=== PATIENT | female | born 1995 | race Hispanic/Latino ===

== ENCOUNTER 2024-11-02 19:31 | Emergency (ER) | payer OTHER ==
[2024-11-02] MEDS ORDERED: ONDANSETRON 4 MG/2 ML VIAL ONE (19:50)
[2024-11-02] MEDS ORDERED: NA CHLORIDE 0.9% 2,000 ML ONE (19:50)
[2024-11-02 20:18] LABS: Absolute Eosinophils 0.1 K/uL (0-0.5); Absolute Lymphocytes (CBC) 7.8 K/uL (0.7-4.9); Absolute Monocytes 0.8 K/uL (0.1-1.3); Absolute Neutrophil 5.2 K/uL (1.8-8.0); Basophils % 0.4 % (0-1.3); Eosinophils % 0.9 % (0-4.4); Hematocrit 32.3 % (36.0-45.0); Hemoglobin 10.9 g/dL (12.0-15.0); Lymphocytes % 55.9 % (15.3-44.8); MCH 29.6 pg (27.0-35.0); MCHC 33.7 g/dL (32.0-36.0); MCV 87.9 fL (80-100); MPV 9.4 fL (7.6-11.3); Monocytes % 5.5 % (3.3-12.3); Neutrophils % 37.3 % (41.7-73.7); Nucleated Red Blood Cells % 0.1 % (0-0); Platelets 326 thou/uL (152-406); RBC Red Blood Cell Count 3.67 M/uL (3.86-4.86); Red Cell Distribution Width 14.3 % (12.1-15.2)
[2024-11-02 20:25] LABS: PT Prothrombin Time 10.8 SECONDS (10-13.0); PTT, Activated Partial Thromb 26.8 SECONDS (27.2-37.4); Protime INR 0.94
[2024-11-02 20:34] LABS: Albumin 2.8 g/dL (3.4-5.0); Albumin/Globulin Ratio 0.7 (1.1-1.8); Anion Gap 13.3 mEq/L (5.0-15.0); Bilirubin Total 0.4 mg/dL (0.2-1.0); Globulin 4.2 g/dL (2.3-3.5); Potassium 3.3 mEq/L (3.5-5.1)
--- NOTE | 2024-11-02 20:47 | RAD REPORT ---
EXAM: CT brain without contrast HISTORY: MENTAL STATUS CHANGE COMPARISON: None TECHNIQUE: Multiple contiguous axial images were obtained and a CT of the brain without contrast. Sag ittal and coronal reformats were performed. One or more of the following dose reduction techniques were used: Automated exposure control, adjust ment of the mA and/or kV according to patient size, and/or iterative reconstruction. FINDINGS: No evidence of hydrocephalus, intracranial hemorrhage, or extra-axial fluid collection. The brain is normal in morphology. No evidence of midline shift or areas of brain edema. The calvarium is intact. The visualized paranasal sinuses and mastoid air cells are essentially clear . IMPRESSION: No evidence of acute intracranial abnormality.
[2024-11-02] MEDS ORDERED: PIPERACIL/TAZO 3.375 GM VIAL IV ONE (20:48)
[2024-11-02] MEDS ORDERED: NA CHLORIDE 0.9% 100 ML ONE (20:48)
--- NOTE | 2024-11-02 20:52 | RAD REPORT ---
EXAMINATION: CTA CHEST PE CLINICAL INDICATION: Chest pain;Dyspnea TECHNIQUE: This examination was performed according to an angiographic protocol with 3D post-processi ng. This involves 3D reconstructions, MIPs, volume rendered images and/or shaded surface rendering. One or more of the following dose reduction techniques were used: Automated exposure control, adjustm ent of the mA and/or kV according to patient size, and/or iterative reconstruction. Unless otherwise specified, incidental findings do not require dedicated imaging follow-up. COMPARISON: No prior exam. FINDINGS: PULMONARY ARTERIES: Normal caliber. No evidence of pulmonary emboli to the subsegmental level. THORACIC AORTA: Normal caliber and configuration. LUNGS: No evidence of airspace or interstitial process. No nodules. PLEURA: No pleural effusion. No pneumothorax. MEDIASTINUM AND LYMPH NODES: No mediastinal mass or fluid collection. Normal size mediastinal, hilar, and axillary lymph nodes. OSSEOUS STRUCTURES AND CHEST WALL: Intact. UPPER ABDOMEN: Separately reported. IMPRESSION: No evidence of pulmonary emboli to the subsegmental level.
[2024-11-02] MEDS ORDERED: NA CHLORIDE 0.9% 250 ML ONE (20:59)
[2024-11-02] MEDS ORDERED: NA CHLORIDE 0.9% 1,000 ML ONE (20:59)
--- NOTE | 2024-11-02 21:00 | RAD REPORT ---
EXAMINATION: CT ABDOMEN AND PELVIS WITH CONTRAST CLINICAL INDICATION: ABD PAIN TECHNIQUE: CT abdomen and pelvis was performed, after the administration of IV contrast, as [facility]. Axial, sagittal and coronal reconstructions were obtained. One or more of the following dose reduction techniques were used: Automated exposure control, adjustment of the mA and k V according to patient size, and iterative reconstruction. Unless otherwise specified, incidental findings do not require dedicated imaging follow-up. COMPARISON: No prior exam. FINDINGS: LOWER CHEST: The visualized lung bases are clear. LIVER: Large hepatic mass is present right lobe measuring up to 9 cm with areas of internal enhanceme nt. Additional irregular mass is present in the left lobe of liver measuring 10 cm. There is mass effect caused by perihepatic hematoma which is large measuring 16 x 4 cm with elevated density. SPLEEN: Normal size. No focal lesion. There is fluid adjacent to the spleen as well measuring up to 2 cm. PANCREAS: No mass, ductal dilation, or jason-pancreatic fluid. ADRENALS: Normal; no mass. KIDNEYS: Normal size and contour. No hydronephrosis. GASTROINTESTINAL TRACT: Significant hemoperitoneum greater on the right. Moderate free fluid with inc reased density in the pelvis. APPENDIX: Normal appendix. LYMPH NODES: No lymphadenopathy. MUSCULOSKELETAL: No acute or suspicious osseous abnormality. ADDITIONAL FINDINGS: Intrauterine gestation is present. IMPRESSION: Moderate to large hemoperitoneum with hepatic subcapsular hematoma. The bleeding is favored to be fro m the large liver mass on the right (question hepatic adenoma or giant hemangioma). Intrauterine gestation identified. The findings were communicated with Dr. Cerda in the ER at 11/02/2024 8:56 PM by telephone.
--- NOTE | 2024-11-02 21:11 | ER ---
Nurse's Notes [facility] Name: Noreen Jauregui Age: 29 yrs Sex: Female : 1995 Arrival Date: 11/02/2024 Time: 19:31 Bed 3 Private MD: Diagnosis: Hemoperitoneum-SPONTANEOUS RUPTURE ADENOMA, BLEEDING;Hypotension, unspecified;19 weeks gestation of Presentation: 11/02 19:34 Chief complaint: Patient states: epigastric pain X 1 hour after eating, is 19 weeks iw , + nausea , 10/10 pain. Coronavirus screen: At this time, the client does not indicate any symptoms associated with coronavirus-19. Ebola Screen: No symptoms or risks identified at this time. Initial Sepsis Screen: Does the patient have a suspected source of infection? No. Patient's initial sepsis screen is negative. Risk Assessment: Do you want to hurt yourself or someone else? Patient reports no desire to harm self or others. Onset of symptoms was November 02, 2024. 19:34 Method Of Arrival: Wheelchair iw 19:34 Acuity: EDDIE 3 iw 19:35 Initial Sepsis Screen: Does the patient meet any 2 criteria? RR > 20 per min. HR > 90 vc1 bpm. Yes. 19:40 Acuity: EDDIE 2 iw Triage Assessment: 19:35 General: Appears distressed, uncomfortable, well groomed, Behavior is cooperative, vc1 listless. Pain: Complains of pain in chest and right upper quadrant Pain does not radiate. Pain currently is 9 out of 10 on a pain scale. Quality of pain is described as sharp, "felt like a train hit me" Pain began suddenly, 30 min ago. EENT: Oral mucosa is dry. lips pale. Neuro: Level of Consciousness is awake, listless, Oriented to person, place, time, situation, Appropriate for age. Cardiovascular: Heart tones S1 S2 present Capillary refill is sluggish Rhythm is sinus tachycardia. Respiratory: Reports shortness of breath at rest Airway is patent Respiratory effort is even, unlabored, Respiratory pattern is symmetrical, tachypnea Breath sounds are clear bilaterally. GI: No deficits noted. No signs and/or symptoms were reported involving the gastrointestinal system. : Denies vaginal bleeding. Derm: Skin is intact, Skin is dry, Skin is pale, Skin temperature is cool. Musculoskeletal: Circulation, motion, and sensation intact. Range of motion: intact in all extremities. 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 - Infectious Disease History:: Denies. - Social history:: Smoking status: Patient denies any tobacco usage or history of. Screenin:35 [facility] ED Fall Risk Assessment (Adult) History of falling in the last 3 months, vc1 including since admission No falls in past 3 months (0 pts) Confusion or Disorientation Yes (5 pts) Intoxicated or Sedated No (0 pts) Impaired Gait Yes (1 pt) Mobility Assist Device Used No (0 pt) Altered Elimination No (0 pt) Score/Fall Risk Level 3 or more points = High Risk Oriented to surroundings, Maintained a safe environment, Educated pt \\T\\ family on fall prevention, incl call for assistance when getting out of bed. Abuse screen: Denies threats or abuse. Nutritional screening: No deficits noted. Tuberculosis screening: No symptoms or risk factors identified. Assessment: 19:35 General: See triage assessment. Pain: Complains of pain in epigastric area and chest vc1 and right upper quadrant Pain does not radiate. Pain currently is 9 out of 10 on a pain scale. Pain began suddenly, 30 min ago. Vital Signs: 19:35 Temp 96.4; vc1 19:40 BP 87 / 52; Pulse 107; Resp 19; Pulse Ox 100% on R/A; iw 20:07 Weight 84.82 kg; vc1 20:53 BP 105 / 70; Pulse 135; Resp 26; Pulse Ox 100% on 2 lpm NC; vc1 21:15 BP 103 / 56; Pulse 129; Resp 26; Pulse Ox 100% ; vc1 21:55 BP 119 / 61; Pulse 113; Resp 22; Pulse Ox 100% ; vc1 21:55 See blood transfusion sheet for vitals vc1 ED Course: 19:32 Patient arrived in ED. rg4 19:35 Arm band placed on right wrist. vc1 19:35 Patient has correct armband on for positive identification. Bed in low position. Call vc1 light in reach. Provided Education on: Blood Transfusion. 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 Pulse ox on. NIBP on. 19:35 Inserted saline lock: 22 gauge in right forearm, using aseptic technique. vc1 19:35 Inserted saline lock: 20 gauge in left antecubital area, using aseptic technique. Blood vc1 collected. Flushed with 10 mL NS. 19:37 Triage completed. iw 19:39 Clara Peterson FNP-C [facility]. kb 19:39 Tashia Robertson MD is Attending Physician. kb 19:40 Inserted saline lock: 22 gauge in right antecubital area, using aseptic technique. vc1 Blood collected. Flushed with 10 mL NS. 20:38 CT Head Brain wo Cont In Process Unspecified. EDMS 20:38 CT Chest For PE Angio In Process Unspecified. EDMS 20:38 CT Abd/Pelvis - IV Contrast Only In Process Unspecified. EDMS 21:00 Oxygen administration via nasal cannula \\T\\ 2L/min. vc1 21:01 Elia Cerda MD is Attending Physician. kb 21:05 Dr. Cerda initiated transfer with [facility]. kmf 21:26 US OB Limited In Process Unspecified. EDMS 21:27 pt was accepted to [facility] ER \\T\\[id number]. Accepting Dr. Deniz Muñoz. Dr. yessica Cerda initiated life flight with [facility] N \\T\\ [id number]. Number for nurse to nurse report [phone] life flight eta 25 mins. 22:15 No provider procedures requiring assistance completed. Patient transferred, IV remains vc1 in place. 22:24 Darlyn Canales, RN is Primary Nurse. vc1 22:31 Frey cath inserted, using sterile technique, 16 Fr., by pa, balloon inflated, to af3 gravity drainage, Patient tolerated well. Administered Medications: 20:07 Drug: NS 0.9% IV (30 ml/kg) 30 ml/kg IV at bolus once; Sepsis Protocol; to be given as vc1 a bolus over 90 minutes Route: IV; Rate: bolus; Site: right antecubital; 20:30 Follow up: IV Status: Completed infusion; IV Intake: 2000ml vc1 20:08 Drug: Ondansetron IVP 4 mg IVP once; over 2 minutes Route: IVP; Site: left antecubital; vc1 20:15 Follow up: Response: No adverse reaction; Marked relief of symptoms; Nausea is decreasedvc1 21:00 Drug: Piperacillin-Tazobactam IVPB 3.375 grams IVPB once over 60 mins; (mix in NS 100 vc1 mL) Route: IVPB; Infused Over: 60 mins; Site: left antecubital; 22:00 Follow up: IV Status: Completed infusion; IV Intake: 100ml vc1 21:15 Drug: NS 0.9% IV 1000 ml IV at 150 ml/hr continuous; to be given as a bolus over 60 vc1 minutes Route: IV; Rate: 150 ml/hr; Site: left antecubital; 22:40 Follow up: IV Status: Infusion continued upon transfer vc1 Medication: 22:15 VIS not applicable for this client. vc1 Intake: 20:30 IV: 2000ml; Total: 2000ml. vc1 22:00 IV: 100ml; Total: 2100ml. vc1 Outcome: 21:11 ER care complete, transfer ordered by MD. serrato 22:15 Transferred by helicopter to [facility], Transfer form completed. X-rays sent vc1 w/ patient. 22:15 Condition: stable vc1 22:15 Instructed on the need for transfer, 22:27 Patient left the ED. vc1 Signatures: Dispatcher [employer] EDMS Clara Peterson, RADIOTELEPHONE TECHNICAL OPERATOR-C RADIOTELEPHONE TECHNICAL OPERATOR-Ckb Elia Cerda MD MD cha Williams, Irene, RN RN iw Garcia, Rubi rg4 Darlyn Canales RN RN 1 Zena Pruett Ashley af3
--- NOTE | 2024-11-02 21:11 | EDPHYS ---
Physician Documentation [facility] Name: Noreen Jauregui Age: 29 yrs Sex: Female : 1995 Arrival Date: 11/02/2024 Time: 19:31 Bed 3 Private MD: ED Physician Elia Cerda HPI: 11/02 20:41 This 29 yrs old Female presents to ER via Wheelchair with complaints of 19 kb weeks , Chest Tightness, Weakness. 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 Pt is 19 weeks . Spouse states pt complained of right sided chest pain at first. States she got pale and looked like she was going to pass out so he brought her in. . 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 - Infectious Disease History:: Denies. - Social history:: Smoking status: Patient denies any tobacco usage or history of. ROS: 20:00 Constitutional: As per HPI kb Exam: 20:00 ECG was reviewed by the Attending Physician. kb 20:41 Head/Face: Normocephalic, atraumatic. ENT: Moist Mucous membranes Respiratory: kb Respirations even and unlabored. No increased work of breathing. Talking in full sentences MS/ Extremity: Pulses equal, no cyanosis. Neurovascular intact. Full, normal range of motion. Neuro: Awake and alert, GCS 15, oriented to person, place, time, and situation. 20:41 Constitutional: The patient appears alert, awake, pale, 20:41 Cardiovascular: Rate: tachycardic, 20:41 Abdomen/GI: Inspection: abdomen appears normal, Bowel sounds: normal, Palpation: soft, in all quadrants, moderate abdominal tenderness, in the epigastric area and right upper quadrant, 20:41 Skin: Appearance: Color: pale, Vital Signs: 19:35 Temp 96.4; vc1 19:40 BP 87 / 52; Pulse 107; Resp 19; Pulse Ox 100% on R/A; iw 20:07 Weight 84.82 kg; vc1 20:53 BP 105 / 70; Pulse 135; Resp 26; Pulse Ox 100% on 2 lpm NC; vc1 21:15 BP 103 / 56; Pulse 129; Resp 26; Pulse Ox 100% ; vc1 21:55 BP 119 / 61; Pulse 113; Resp 22; Pulse Ox 100% ; vc1 21:55 See blood transfusion sheet for vitals vc1 MDM: 19:39 Medical Screening Exam initiated kb 20:31 ED course: Discussed case with Dr Cerda and Ailyn who were both at bedside for kb evaluation. Both recommend CT head, CT chest for PE and CT abd/pelvis to rule out bleeding. . 20:44 Data reviewed: vital signs, nurses notes. Historians other than the Patient: kb Spouse/Significant Other: spouse. 21:02 Differential diagnosis: intraabdominal hemorrhage, PE, arrhythmia, acute TN. kb Consideration of Admission/Observation Escalation of care including admission/observation considered. pt will be transferred . Counseling: I had a detailed discussion with the patient and/or guardian regarding the historical points, exam findings, and any diagnostic results supporting the discharge/admit diagnosis, lab results, radiology results, the need to transfer to another facility, [facility] does not immediately have the required specialist. 21:03 ED course: I initially saw this patient with Karina she came in as a hypotensive gb1 29-year-old G2, P1 at approximately 19 weeks gestation. heart tones in the 130s. Patient appeared lethargic and very pale she was hypotensive a immediate fast scan was done there was no free fluid in the abdomen however there was a large mass in the liver that was visible. She has a known history of hepatic adenomas with a concern now for hemoperitoneum. Patient is being transfused with packed red blood cells and blood pressure has responded to fluid bolus. The patient's care was transferred to Dr. Cerda pending LifeFlight to a higher level of care that is consistent with trauma/OB.. 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 Pt is pale, lethargic, hypotensive and tachycardic upon arrival. Pt is awake, alert and oriented x4. serum labs, cat scans ordered. Blood pressure improved after first 2 liters of NS given. Pt's color has improved and pt states she is feeling better. . 21:07 ED course: Sepsis reevaluation complete. kb 21:27 Management of patient was discussed with the following: Dr Cerda discussed case with [facility] providers. Pt was accepted for transfer by Dr Muñoz. . 11/02 19:44 Order name: Blood Culture Adult (2) kb 11/02 19:44 Order name: CBC with Diff; Complete Time: 20:19 kb 11/02 19:44 Order name: CMP; Complete Time: 20:34 kb 11/02 19:44 Order name: Lactate w/ 2H reflex if indic.; Complete Time: 20:41 kb 11/02 19:44 Order name: Protime (+inr); Complete Time: 20:29 kb 11/02 19:44 Order name: Ptt, Activated; Complete Time: 20:29 kb 11/02 20:19 Order name: Type And Screen 11/02 20:42 Order name: Ghost Lactate-NO COLLECT Timer EDAR 11/02 21:00 Order name: Hemoglobin; Complete Time: 21:20 kb 11/02 21:00 Order name: Hematocrit; Complete Time: 21:20 kb 11/02 21:06 Order name: Packed RBC Leukored EDAR 11/02 21:47 Order name: ABO/RH no charge; Complete Time: 21:53 EDMS 11/02 19:44 Order name: US OB Limited; Complete Time: 21:42 kb 11/02 20:31 Order name: CT Head Brain wo Cont; Complete Time: 20:48 kb 11/02 20:31 Order name: CT Chest For PE Angio; Complete Time: 20:54 kb 11/02 20:31 Order name: CT Abd/Pelvis - IV Contrast Only; Complete Time: 21:01 kb 11/02 19:44 Order name: Cardiac monitoring; Complete Time: 20:52 kb 11/02 19:44 Order name: EKG - Nurse/Tech; Complete Time: 20:52 kb 11/02 19:44 Order name: IV Saline Lock - Large Bore; Complete Time: 20:52 kb 11/02 19:44 Order name: Labs collected and sent; Complete Time: 20:52 kb 11/02 19:44 Order name: O2 Per Protocol; Complete Time: 20:52 kb 11/02 19:44 Order name: O2 Sat Monitoring; Complete Time: 20:52 kb 11/02 19:44 Order name: Vital Signs; Complete Time: 20:52 kb 11/02 20:24 Order name: Shante; Complete Time: 22:39 rojelio 11/02 20:24 Order name: Oxygen: 2 liters; Complete Time: 20:52 rojelio 11/02 20:58 Order name: NPO rojelio 11/02 20:59 Order name: Transfuse; Complete Time: 22:42 rojelio EC:00 Rate is 119 beats/min. Rhythm is regular. QRS [place] is Normal. IA interval is normal at kb 118 msec. QRS interval is normal at 74 msec. QT interval is normal at 497 msec. Administered Medications: 20:07 Drug: NS 0.9% IV (30 ml/kg) 30 ml/kg IV at bolus once; Sepsis Protocol; to be given as vc1 a bolus over 90 minutes Route: IV; Rate: bolus; Site: right antecubital; 20:30 Follow up: IV Status: Completed infusion; IV Intake: 2000ml vc1 20:08 Drug: Ondansetron IVP 4 mg IVP once; over 2 minutes Route: IVP; Site: left antecubital; vc1 20:15 Follow up: Response: No adverse reaction; Marked relief of symptoms; Nausea is decreasedvc1 21:00 Drug: Piperacillin-Tazobactam IVPB 3.375 grams IVPB once over 60 mins; (mix in NS 100 vc1 mL) Route: IVPB; Infused Over: 60 mins; Site: left antecubital; 22:00 Follow up: IV Status: Completed infusion; IV Intake: 100ml vc1 21:15 Drug: NS 0.9% IV 1000 ml IV at 150 ml/hr continuous; to be given as a bolus over 60 vc1 minutes Route: IV; Rate: 150 ml/hr; Site: left antecubital; 22:40 Follow up: IV Status: Infusion continued upon transfer vc1 Disposition Summary: 11/02/24 21:11 Transfer Ordered Notes: Transfer Location: [facility] Reason: Higher level of care rojelio Condition: Serious rojelio Problem: new rojelio Symptoms: have improved rojelio Accepting Physician: SUNDAR HOYOS(11/02/24 22:27) vc1 Diagnosis - Hemoperitoneum - SPONTANEOUS RUPTURE ADENOMA, BLEEDING rojelio - Hypotension, unspecified rojelio - 19 weeks gestation of rojelio Forms: - Medication Reconciliation Form rojelio - SBAR form rojelio Critical care time excluding procedures: 21:03 Critical care time: Bedside Care: 10 minutes, Consultation: 10 minutes, Family kb Intervention: 10 minutes. Total time: 30 minutes Addendum: 11/04/2024 16:43 Co-signature as Attending Physician, Elia Cerda MD I agree with the assessment and c manzano plan of care. Signatures: Dispatcher [employer] EDMS Clara Peterson, CROWN BLOCKER-C CROWN BLOCKER-Ckb Elia Cerda MD MD rojelio Rebecca Reyna, DAWIT RN iw Darlyn Canales RN RN vc1 Tashia Robertson MD MD gb1 Corrections: (The following items were deleted from the chart) 11/02 19:45 19:45 BLOOD CULTURE*+BA.LAB.BRZ ordered. EDMS EDMS 19:45 19:45 CBC+H.LAB.BRZ ordered. EDMS EDMS 19:45 19:45 COMPREHENSIVE METABOLIC PANEL+C.LAB.BRZ ordered. EDMS EDMS 19:45 19:45 LACTATE+C.LAB.BRZ ordered. EDMS EDMS 19:45 19:45 PROTIME (+INR)+COAG.LAB.BRZ ordered. EDMS EDMS 19:45 19:45 PTT, ACTIVATED+COAG.LAB.BRZ ordered. EDMS EDMS 19:45 19:45 Urinalysis+U.LAB.BRZ ordered. EDMS EDMS 19:45 19:45 OB Limited+US.RAD.BRZ ordered. EDMS EDMS 19:45 19:45 Abdomen Limited+US.RAD.BRZ ordered. EDMS EDMS 20:31 20:31 Head Brain Wo Cont+CT.RAD.BRZ ordered. EDMS EDMS 20:31 20:31 Chest For PE Angio+CT.RAD.BRZ ordered. EDMS EDMS 20:31 20:31 Abdomen Pelvis W Con+CT.RAD.BRZ ordered. EDMS EDMS 20:35 20:35 LIPASE+C.LAB.BRZ ordered. EDMS EDMS 20:51 19:44 Accucheck ordered. kb vc1 21:01 20:22 Chest Single View+RAD.RAD.BRZ ordered. EDMS EDMS 22:27 21:11 TO AVERY serrato vc1
[2024-11-02 21:19] LABS: Hematocrit 21.7 % (36.0-45.0); Hemoglobin 7.4 g/dL (12.0-15.0)
--- NOTE | 2024-11-02 21:40 | RAD REPORT ---
EXAM:OB Limited . CLINICAL HISTORY: with abdominal pain. ABD PAIN TECHNIQUE: Limited OB ultrasound performed. FINDINGS: Limited emergency sonogram was performed. Single live intrauterine gestation is present cardiac activ ity was low for age measuring 94 BPM. Cervix is long and closed. Amniotic fluid volume is within normal limits. Neither ovary well seen due to bowel gas. IMPRESSION: bradycardia noted. The findings were communicated with Dr. Cerda in the ER at 11/02/2024 9:37 PM by telephone.
[2024-11-02 22:33] VITALS: O2SAT 100
[2024-11-02 22:36] VITALS: BP 119/61
--- NOTE | 2024-11-05 12:07 | EKG ---
Test Date: 2024-11-02 Test Time: 19:40:32 Dimension Specification Inspector: MAYRA MEASUREMENT RESULTS: Intervals: Rate: 119 [place]: 118 QRSD: 74 QT: 354 QTc: 497 [place]: P: 59 [place]: 118 QRS: 76 T: 34 INTERPRETIVE STATEMENTS: Sinus tachycardia Cannot rule out Anterior infarct, age undetermined Abnormal ECG No previous ECG available for comparison Electronically Signed On 11-05-24 12:02:13 CDT by Lawrence Gutiérrez
== END 2024-11-02 22:27 | disposition short-term general hospital (02) ==
LOC: ER 19:31
DX: O26.892 Other specified pregnancy related conditions, second trimester (principal); K66.1 Hemoperitoneum; I95.9 Hypotension, unspecified; Z3A.19 19 weeks gestation of pregnancy
CPT/HCPCS: 93005; 87040 ×2; 85025; 36415; 86900; 86850; 85610; 86901; 83605; 85730; 86920 ×2; 85018; 85014; 80053; 70450; 71275; 74177; 76815; 51702; 99285; Q9967; J2543; J2405; P9016 ×2; J7050; J7030 ×2